=== PATIENT | male | born 1930 | race Caucasian/White ===

== ENCOUNTER 2018-01-26 16:19 | Inpatient (IN) | payer OTHER ==
[~2018-01-26] VITALS: Ht 185.4 cm; Wt 95.7 kg
[~2018-01-26 16:19] MED LIST: BACTRIM DS TAB1 EACH PO; FLOMAX0.4 MG PO; KEFLEX500 MG PO; PROSCAR 5MG TABL5 M1 PO
[2018-01-26 16:23] VITALS: BP 143/93
[2018-01-26] MEDS ORDERED: MIRALAX17 GM PO (16:29)
[2018-01-26] MEDS ORDERED: ASA5UEC PO (16:29)
[2018-01-26 16:38] LABS: ABSOLUTE EOSINOPHILS 0.2 thou/uL (0.0-0.7); ABSOLUTE LYMPHOCYTES 1.8 thou/uL (0.8-5.3); ABSOLUTE MONOCYTES 0.9 thou/uL (0.0-1.2); ABSOLUTE NEUTROPHILS 5.5 thou/uL (1.6-8.1); BASOPHILS 0.6 %; EOSINOPHILS 2.5 %; HEMATOCRIT 42.6 % (42.0-52.0); HEMOGLOBIN 14.5 gm/dL (14.0-18.0); LYMPHOCYTES 21.1 %; MCH 32.4 pg (26.0-34.0); MCHC 34.2 g/dL (28.0-37.0); MCV 94.8 fL (80.0-100.0); MONOCYTES 10.8 %; MPV 7.5 fl. (7.2-11.1); NUCLEATED RBCS 0 /100WBC; PLATELET COUNT* 212 thou/uL (150-400); RBC 4.49 mil/uL (4.50-6.00); RDW-CV 13.2 % (10.5-14.5); WBC 8.5 thou/uL (4.0-11.0)
[2018-01-26 16:45] LABS: ANION GAP 7 mmol/L (7-16); BUN 30 mg/dL (7-18); CHLORIDE 106 mmol/L (98-107); CO2 25 mmol/L (21-32); CREATININE 1.5 mg/dL (0.6-1.3); GLUCOSE 92 mg/dL (70-99); POTASSIUM 4.2 mmol/L (3.5-5.1); SODIUM 138 mmol/L (136-145)
[2018-01-26 16:50] LABS: APTT 28.4 Seconds (25.0-31.3); INR 1.1; PROTIME 11.7 Seconds (9.20-11.50)
[2018-01-26 17:04] LABS: ALBUMIN 3.6 g/dL (3.4-5.0); ALKALINE PHOSPHATASE 76 U/L (46-116); CK-MB MASS 1.5 ng/mL (<0.5-3.6); LIPASE 193 U/L (73-393); MAGNESIUM 1.8 mg/dL (1.8-2.4); NT-PRO BRAIN NAT PEPTIDE 1293 pg/mL (<300); SGOT 15 U/L (15-37); SGPT 19 U/L (30-65); TOTAL BILIRUBIN 1.4 mg/dL (<0.1-1.0); TOTAL PROTEIN 7.1 g/dL (6.4-8.2); TROPONIN-I LEVEL <0.06 ng/mL (<0.06)
[2018-01-26 18:13] VITALS: BP 135/83
[2018-01-26 18:20] VITALS: BP 141/87
[2018-01-26 20:17] VITALS: BP 130/75
[2018-01-27] VITALS: BP 110/64
[2018-01-27 04:00] VITALS: BP 129/72
[2018-01-27 05:16] LABS: ABSOLUTE EOSINOPHILS 0.4 thou/uL (0.0-0.7); ABSOLUTE LYMPHOCYTES 1.6 thou/uL (0.8-5.3); ABSOLUTE MONOCYTES 0.8 thou/uL (0.0-1.2); ABSOLUTE NEUTROPHILS 3.4 thou/uL (1.6-8.1); BASOPHILS 0.7 %; EOSINOPHILS 5.7 %; HEMATOCRIT 38.3 % (42.0-52.0); HEMOGLOBIN 12.8 gm/dL (14.0-18.0); LYMPHOCYTES 26.6 %; MCHC 33.5 g/dL (28.0-37.0); MCV 95.5 fL (80.0-100.0); MONOCYTES 12.4 %; MPV 8.2 fl. (7.2-11.1); NUCLEATED RBCS 0 /100WBC; PLATELET COUNT* 175 thou/uL (150-400); POLYS 54.6 %; RBC 4.01 mil/uL (4.50-6.00); RDW-CV 13.3 % (10.5-14.5); WBC 6.2 thou/uL (4.0-11.0)
[2018-01-27 05:22] LABS: CALCIUM 8.4 mg/dL (8.5-10.1); CREATININE 1.2 mg/dL (0.6-1.3); POTASSIUM 4.2 mmol/L (3.5-5.1)
[2018-01-27 08:00] VITALS: BP 136/78
[2018-01-27 12:01] VITALS: BP 146/96
--- NOTE | 2018-01-27 14:14 | 2DMMODE ---
[place] [address] 2 D/M-MODE ECHOCARDIOGRAM Name: GUERLINE OLSEN Room: [address] IN [facility]#: [id number] Admission: 01/26/18 Attend Phys: Rey Varghese, Discharge: Date of : 03/26/30 Date of Service: 01/27/18 1413 Report #: [id number] THIS REPORT FOR: //name// APPROVED REPORT Study performed: 01/27/2018 11:17:37 EXAM: Comprehensive 2D, Doppler, and color-flow Echocardiogram Patient Location: In-Patient Room #: [facility] Status: routine BSA: 2.25 HR: 82 bpm BP: 136/78 mmHg Rhythm: Atrial Fibrillation Other Information Study Quality: Good Indications Arrhythmia Atrial Fibrillation Syncope 2D Dimensions IVSd: 12.75 (7-11mm) LVOT Diam: 23.05 (18-24mm) LVDd: 49.46 mm PWd: 9.94 (7-11mm) Ascending Ao: 34.47 (22-36mm) LVDs: 38.14 (25-40mm) Aortic Root: 33.78 mm Volumes Left Atrial Volume (Systole) LA ESV Index: 69.00 mL/m2 Aortic Valve AoV Peak Vince.: 1.33 m/s AO Peak Gr.: 7.12 mmHg LVOT Max P.72 mmHg AO Mean Gr.: 4.11 mmHg LVOT Mean P.32 mmHg LVOT Max V: 0.83 m/s AO V2 VTI: 25.44 cm LVOT Mean V: 0.52 m/s DEEP (VTI): 2.25 cm2 LVOT V1 VTI: 13.71 cm Mitral Valve MV Decel. Time: 91.39 [place] [address] 2 D/M-MODE ECHOCARDIOGRAM Name: GUERLINE OLSEN Room: [address] IN .R.#: [id number] Admission: 01/26/18 Attend Phys: Rey Varghese, Discharge: Date of : 03/26/30 Date of Service: 01/27/18 1413 Report #: [id number] MV PHT: 26.50 ms MVA (PHT): 8.30 cm2 TDI Lateral E' Vince.: 0.10 m/s Pulmonary Valve PV Peak Vince.: 1.08 m/s PV Peak Gr.: 4.63 mmHg Tricuspid Valve RAP Estimate: 5.00 mmHg TR Peak Gr.: 35.11 mmHg RVSP: 40.11 mmHg PA Pressure: 40.11 mmHg Left Ventricle The left ventricle is normal size. There is normal LV segmental wall motion. There is normal left ventricular wall thickness. The left ventricular systolic function is normal. LVEF is 60%. This study is not technically sufficient to allow evaluation of the LV diastolic function due to atrial flutter. Right Ventricle The right ventricle is normal size. The right ventricular systolic function is normal. Atria Left atrium is moderately dilated. The right atrium size is normal. Aortic Valve Mild aortic valve sclerosis. No aortic regurgitation is present. There is no aortic valvular stenosis. Mitral Valve The mitral valve is normal in structure. Mild mitral regurgitation. No evidence of mitral valve stenosis. Tricuspid Valve The tricuspid valve is normal in structure. Trace tricuspid regurgitation. Moderate pulmonary hypertension. Pulmonic Valve The pulmonary valve is normal in structure. Mild pulmonic reg[place]itation[place] [address] 2 D/M-MODE ECHOCARDIOGRAM Name: GUERLINE OLSEN Room: [address] IN [facility].#: [id number] Admission: 01/26/18 Attend Phys: Rey Varghese, Discharge: Date of : 03/26/[birth year] Date of Service: 01/27/18 1413 Report #: [id number] The aortic root is normal in size. The inferior vena cava is not well visualized. Pericardium There is no pericardial effusion. <Conclusion> The left ventricle is normal size. There is normal left ventricular wall thickness. The left ventricular systolic function is normal. LVEF is 60%. This study is not technically sufficient to allow evaluation of the LV diastolic function due to atrial flutter. Left atrium is moderately dilated. Mild aortic valve sclerosis. Mild mitral regurgitation. Trace tricuspid regurgitation. Moderate pulmonary hypertension. <ELECTRONICALLY SIGNED> By: Kade Barbosa MD, FACC 01/27/18 1413 12 12 Kade Barbosa MD, FACC /INF
--- NOTE | 2018-01-27 14:51 | EKG ---
[place] [address] ELECTROCARDIOGRAM REPORT Name: GUERLINE OLSEN Room: [address] ADM IN .R.#: [id number] Admission: 01/26/18 Attend Phys: Rey Varghese MD Discharge: Date of : 03/26/[birth year] Report #: [id number] THIS REPORT FOR: //name// [facility] ED Test Date: 2018-01-26 Test Time: 16:55:38 Pat Name: GUERLINE OLSEN Department: Room: [facility] Gender: M Health Information Provider: : 1930 Requested By: Lester Wilkinson Order Number: [id number] MD: Nikolai Foy Measurements Intervals [place] Rate: 71 P: [place]: QRS: -9 QRSD: 102 T: 44 QT: 389 QTc: 423 Interpretive Statements Atrial fibrillation Ventricular premature complex Inferior infarct, old Minimal ST elevation, anterior leads Electronically Signed On 01-27-2018 14:51:43 CDT by Nikolai Foy [email or web address] <ELECTRONICALLY SIGNED> By: Nikolai Foy MD, [facility] 01/27/18 1451 1655 165 Nikolai Foy MD, FACC /EPI
--- NOTE | 2018-01-27 14:51 | EKG ---
[place] [address] ELECTROCARDIOGRAM REPORT Name: GUERLINE OLSEN Room: [address] ADM IN .R.#: [id number] Admission: 01/26/18 Attend Phys: Rye Varghese MD Discharge: Date of : 03/26/30 Report #: [id number] THIS REPORT FOR: //name// [facility] ED Test Date: 2018-01-26 Test Time: 16:26:20 Pat Name: GUERLINE OLSEN Department: Room: [facility] Gender: M Area Cleaner: MARJAN : 1930 Requested By: Lester Wilkinson Order Number: [id number] MD: Nikolai Foy Measurements Intervals [place] Rate: 142 P: 122 [place]: 128 QRS: -5 QRSD: 97 T: 43 QT: 291 QTc: 447 Interpretive Statements Supraventricular tachycardia Ventricular premature complex ST depression, probably rate related No previous ECG available for comparison Electronically Signed On 01-27-2018 14:50:57 CDT by Nikolai Foy [email or web address] <ELECTRONICALLY SIGNED> By: Nikolai Foy MD, [facility] 01/27/18 1450 1626 1626 Nikolai Foy MD, [facility] /EPI
--- NOTE | 2018-01-27 15:43 | EKG ---
[place] [address] ELECTROCARDIOGRAM REPORT Name: GUERLINE OLSEN Room: [address] ADM IN M.R.#: [id number] Admission: 01/26/18 Attend Phys: Rey Varghese MD Discharge: Date of : 03/26/[birth year] Report #: [id number] THIS REPORT FOR: //name// [facility] Test Date: 2018-01-26 Test Time: 22:35:07 Pat Name: GUERLINE OLSEN Department: Room: [address] Gender: M Contract Administrative Assistant: GIOVANNI : 1930 Requested By: Lester Wilkinson Order Number: [id number] Tawnya MD: Kade Barbosa Measurements Intervals [place] Rate: 70 P: [place]: QRS: 23 QRSD: 92 T: 99 QT: 390 QTc: 421 Interpretive Statements Atrial flutter with predominant 4:1 AV block Borderline low voltage, extremity leads Nonspecific T abnormalities, lateral leads Minimal ST elevation, inferior leads No previous ECG available for comparison Electronically Signed On 01-27-2018 15:43:45 CDT by Kade Barbosa [email or web address] <ELECTRONICALLY SIGNED> By: Kade Barboas MD, [facility] 01/27/18 1543 2235 2235 Kade Barbosa MD, [facility] /EPI
--- NOTE | 2018-01-27 15:45 | EKG ---
[place] [address] ELECTROCARDIOGRAM REPORT Name: GUERLINE OLSEN Leigha Room: [address] ADM IN M.R.#: [id number] Admission: 01/26/18 Attend Phys: Rey Varghese MD Discharge: Date of : 03/26/[birth year] Report #: [id number] THIS REPORT FOR: //name// [facility] Test Date: 2018-01-27 Test Time: 04:48:29 Pat Name: GUERLINE OLSEN Department: Room: [address] Gender: M Sap Pp Consultant: GIOVANNI : 1930 Requested By: Lester Wilkinson Order Number: [id number] Tawnya MD: Kade Barbosa Measurements Intervals [place] Rate: 71 P: [place]: QRS: 2 QRSD: 100 T: 99 QT: 389 QTc: 423 Interpretive Statements Atrial flutter with predominant 4:1 AV block Nonspecific T abnormalities, lateral leads No previous ECG available for comparison Electronically Signed On 01-27-2018 15:45:05 CDT by Kade Barbosa [email or web address] <ELECTRONICALLY SIGNED> By: Kade Barbosa MD, [facility] 01/27/18 1545 0448 0448 Kade Barbosa MD, FAC /EPI
[2018-01-27 15:49] VITALS: BP 137/77
[2018-01-27 20:00] VITALS: BP 117/64
[2018-01-28] VITALS (17 sets, daily range): BP systolic 84–140; BP diastolic 47–82
--- NOTE | 2018-01-28 08:42 | CON ---
[address] [address] CONSULTATION Name: RAÚLGUERLINE Leigha Room: [address] IN .R.#: [id number] Admission: 01/26/18 Attend Phys: Rey Varghese MD Discharge: Date of : 03/26/[birth year] Report #: [id number] THIS REPORT FOR: //name// CC: Rey Stephenson [facility] INDICATION: Near syncope. HISTORY OF PRESENT ILLNESS: The patient is a very pleasant 87-year-old gentleman who is quite functional, who presented to the hospital with near syncope. On telemetry, he is noted to be in atrial flutter. He initially had a rapid ventricular response rate. He denies any sensation of palpitations. He is not having shortness of breath or chest pain. While driving yesterday, he felt near syncopal and pulled over. He thinks he passed out for just a few seconds and then regained consciousness. He has had no symptoms like this before or since. He is without other cardiac complaint. He denies any history of cardiac disease. PAST MEDICAL HISTORY: Significant for BPH. He has had previous skin cancer removed. ALLERGIES: PENICILLIN. CURRENT MEDICATIONS: Flomax. FAMILY HISTORY: Noncontributory. SOCIAL HISTORY: Denies use of tobacco or alcohol. He is . REVIEW OF SYSTEMS: A 14-point review of system is positive for syncope, skin cancer removed, ALLERGIES TO PENICILLIN, he wears glasses without acute visual change and has decreased hearing and wears hearing aid. Otherwise, 14-point review of systems unremarkable. PHYSICAL EXAMINATION: VITAL SIGNS: Stable. Blood pressure 146/96, pulse is in the 80s and regular. GENERAL: This is a pleasant elderly gentleman, in no distress. Mood and affect appropriate. HEENT: The patient is wearing glasses and hearing aids. Extraocular muscles are intact. Mucous membranes are moist. NECK: Shows no jugular venous distention. There are no carotid bruits. CHEST: Reveals clear lung dobson without wheezes or rales. CARDIAC: Reveals a regular rhythm, normal S1 and S2. I do not appreciate gallop or murmur. ABDOMEN: Reveals normal bowel sounds. The abdomen is soft and nontender. EXTREMITIES: Shows no edema. Peripheral [place] [address] CONSULTATION Name: GUERLINE OLSEN Room: [address]#: [id number] Admission: 01/26/18 Attend Phys: Rey Varghese MD Discharge: Date of : 03/26/[birth year] Report #: [id number] SKIN: Warm and dry. A 12-lead EKG shows atrial flutter with a rapid ventricular response rate. LABORATORY DATA: Labs are reviewed. Electrolytes within normal limits. BUN 26, creatinine 1.2, serum glucose 93. Troponin less than 0.06. White blood cell count 6.2, hemoglobin 12.8, and platelet count 175,000. IMPRESSION AND RECOMMENDATIONS: 1. Near syncope, likely due to underlying cardiac dysrhythmia. The patient is showing atrial flutter with a 4:1 conduction at present. Questionable either tachy or bradyarrhythmia. Continue telemetry monitoring at this time. 2. Atrial flutter, rapid ventricular response, resolved, on diltiazem. We will plan flecainide bolus in an effort to chemically convert to sinus rhythm. We will continue observation on telemetry. Echocardiogram shows preserved left ventricular systolic function. We will further discuss anticoagulation with the patient. At this time, continue daily aspirin. <ELECTRONICALLY SIGNED> By: Kade Barbosa MD, FACC 01/28/18 0842 1417 [facility]32[facility] Hyun Barbosa MD, FACC /nt
--- NOTE | 2018-01-28 16:35 | TEE ---
[place] [address] TRANSESOPHAGEAL ECHOCARDIOGRAM Name: GUERLINE OLSEN Room: [address] IN [facility]#: [id number] Admission: 01/26/18 Attend Phys: Rey Varghese, Discharge: Date of : [birth year]/26/[birth year] Date of Service: 01/28/18 1635 Report #: [id number] THIS REPORT FOR: //name// APPROVED REPORT Study performed: 01/28/2018 16:03:10 EXAM: Transesophageal Echocardiogram Patient Location: In-Patient Room #: [facility] Status: routine BSA: 2.25 HR: 85 bpm BP: 138/82 mmHg Rhythm: Atrial Fibrillation Other Information Study Quality: Good Indications Atrial Fibrillation Echo Enhancing Agent Indication: Rule out Shunt Agent(s) / Amount(s) Used: Agitated Saline 10 cc Procedure After obtaining informed consent, patient underwent transesophageal echo in the [employer]. Type of Sedation : Conscious Sedation Sedation was administered by Nadir Patterson RN. Sedation start time: 1609 Case end Time: 1623 Sedation was achieved intravenously with: Versed (3) Fentanyl (50) Transesophageal probe was inserted and advanced into esophagus without difficulty by Kade Barbosa MD, FACC. Echo enhancement indication: R/O Septal defect. Echo enhancement agent administered: Agitated Saline The ELLIOT was performed without complications. Synchronized Cardioversion acheived with 300 Joules after 1 attempt(s). Rhythm following Synchronized Cardioversion: Normal Sinus Rhythm Throughout the procedure, the blood pressure, pulse oximetry, cardiac rhythm, and rate were monitored. The patient tolerated the procedure without adverse effects. Recovery [address] [address] TRANSESOPHAGEAL ECHOCARDIOGRAM Name: GUERLINE OLSEN Room: [address] IN [facility]#: [id number] Admission: 01/26/18 Attend Phys: Rey Varghese, Discharge: Date of : 03/26/[birth year] Date of Service: 01/28/18 1635 Report #: [id number] from conscious sedation was uneventful and vital signs were stable. Left Ventricle The left ventricle is normal size. There is normal LV segmental wall motion. There is normal left ventricular wall thickness. Left ventricular systolic function is normal. LVEF is 55-60%. Right Ventricle The right ventricle is normal size. The right ventricular systolic function is normal. Atria No thrombus is visualized in the left atrium or appendage. Interatrial septum is intact without evidence of ASD or PFO. The right atrium size is normal. Aortic Valve The aortic valve is normal in structure. No aortic regurgitation is present. There is no aortic valvular stenosis. Mitral Valve The mitral valve is normal in structure. Mild mitral regurgitation. No evidence of mitral valve stenosis. Tricuspid Valve The tricuspid valve is normal in structure. There is no tricuspid valve regurgitation noted. Pulmonic Valve The pulmonary valve is normal in structure. There is no pulmonic valvular regurgitation. Great Vessels The aortic root is normal in size. Pericardium There is no pericardial effusion. <Conclusion> The left ventricle is normal size. There is normal left ventricular wall thickness. Left ventricular systolic function is normal. LVEF is 55-60%. Interatrial septum is intact without evidence of [place] [address] TRANSESOPHAGEAL ECHOCARDIOGRAM Name: GUERLINE OLSEN Room: [address] IN M.R.#: [id number] Admission: 01/26/18 Attend Phys: Rey Varghese, Discharge: Date of : 03/26/[birth year] Date of Service: 01/28/181634 Report #: [id number] No thrombus is visualized in the left atrium or appendage. Mild mitral regurgitation. <ELECTRONICALLY SIGNED> By: Kade Barbosa MD, FACC 01/28/181634 34 34 Kade Barbosa MD, FACC /INF
[2018-01-29] VITALS: BP 115/66
[2018-01-29 04:00] VITALS: BP 125/81
[2018-01-29 07:59] VITALS: BP 144/81
[2018-01-29] MEDS ORDERED: METOPROLOL TART25 MG PO (10:18)
[2018-01-29] MEDS ORDERED: FLECAINIDE ACET50 M1 PO (10:19)
[2018-01-29 10:22] VITALS: BP 144/81
--- NOTE | 2018-01-30 12:59 | CARD ---
[address] [address] CARDIAC CATH REPORT Name: GUERLINE OLSEN Room: [address] IN M.R.#: [id number] Admission: 01/26/18 Attend Phys: Rey Varghese MD Discharge: 01/29/18 Date of : 03/26/30 Report #: [id number] THIS REPORT FOR: //name// CC: Rey Stephenson [facility] INDICATION: Persistent atrial flutter. PROCEDURE: Transesophageal guided cardioversion. DESCRIPTION OF PROCEDURE: After informed consent was obtained, the patient was brought to the cardiac holding area. After an initial transesophageal echocardiogram was completed, the patient was cardioverted to normal sinus rhythm with a single biphasic shock of 300 joules. The transesophageal echocardiogram will be reported separately. The patient tolerated the procedure well without complication. IMPRESSION: 1. Persistent atrial flutter. 2. Transesophageal guided direct current cardioversion to normal sinus rhythm. <ELECTRONICALLY SIGNED> By: Kade Barbosa MD, FACC 01/30/18 1259 1636 0018Micilene Barbosa MD, FACC /nt
== END 2018-01-29 11:30 | disposition home or self-care (01) | DRG 308 ==
LOC: M.ERS 16:19 → M.TBA-ER 17:04 → M.2W 17:04
PROVIDERS: Family Medicine; ADMIT Internal Medicine
PROC: 5A2204Z Restoration of Cardiac Rhythm, Single (ICD-10-PCS; principal; 2018-01-28)
PROC: B246ZZ4 Ultrasonography of Right and Left Heart, Transesophageal (ICD-10-PCS; 2018-01-28)
DX: I48.91 Unspecified atrial fibrillation (principal); I50.33 Acute on chronic diastolic (congestive) heart failure; N17.9 Acute kidney failure, unspecified; N18.9 Chronic kidney disease, unspecified; I48.92 Unspecified atrial flutter; N40.0 Benign prostatic hyperplasia without lower urinary tract symptoms; Z79.82 Long term (current) use of aspirin; Z79.899 Other long term (current) drug therapy; Z88.0 Allergy status to penicillin; Z85.828 Personal history of other malignant neoplasm of skin